=== PATIENT | female | born 1980 | race Caucasian/White ===

== ENCOUNTER 2017-01-14 17:08 | Emergency (ER) | payer MEDICAID ==
[2017-01-14 17:17] VITALS: RESP 18
--- NOTE | 2017-01-14 18:35 | EDPHY ---
H & P Time Seen by Provider: 01/14/17 17:33 HPI/ROS: CHIEF COMPLAINT: Scalp laceration HISTORY OF PRESENT ILLNESS: 36-year-old female presents emergency department with lacerations to the back of her head. She was walking down a trail when her feet slid on rocks out from underneath her and she struck the back of her head on the trail. Patient denies loss of consciousness, no neck pain, she denies dizziness, blurred vision, headache, fogginess. Tetanus is up-to-date. Patient denies other complaints. REVIEW OF SYSTEMS: A comprehensive 10 point review of systems is otherwise negative aside from elements mentioned in the history of present illness. Smoking Status: Never smoked Physical Exam: GEN: Awake, alert, oriented, no acute distress RESP: nl resp effort MSK: No C-spine tenderness to palpation Neuro: Alert and oriented, no facial asymmetry, follows commands, moves all extremities SKIN: 1.5cm posterior occiput superficial laceration and 3 cm posterior occiput superficial laceration Constitutional: Initial Vital Signs Temperature (C) 37 C 01/14/17 17:13 Heart Rate 102 H 01/14/17 17:13 Respiratory Rate 18 01/14/17 17:13 Blood Pressure 114/87 H 01/14/17 17:13 O2 Sat (%) 96 01/14/17 17:13 O2 Delivery Mode Room Air Allergies/Adverse Reactions: No Known Allergies Allergy (Verified 01/14/17 17:12) Home Medications: Medication Instructions Recorded NK [No Known Home Meds] 01/14/17 Medical Decision Making Procedures: Procedure: 2 Laceration repairs. Verbal consent was obtained from the patient. The 3 cm and 1.5 cm laceration on the scalp was anesthetized using 1% lidocaine with epinephrine. The wound was carefully irrigated by the emergency department lay out technician. Next, the wound was prepped and draped in sterile fashion and explored to its base with a gloved finger. There were no deep structures involved. No vascular injury was identified. No foreign bodies were identified. The wounds were repaired with allyn, 6 and 3. The wound repair was simple. The procedure was performed by myself. Tetanus and antibiotic status were addressed. ED Course/Re-evaluation: This patient presents after a minor head injury with no headache, amnesia or LOC. Neurologic exam normal. No indication for neuro imaging. CHI precautions given. Differential Diagnosis: The differential diagnosis for the patient's head injury included but was not limited to concussion, skull fracture, intra-parenchymal contusion, subarachnoid , subdural and epidural hematoma. Departure - Departure Disposition: Home, Routine, Self-Care Clinical Impression: Minor head injury without loss of consciousness Qualifiers: Encounter type: initial encounter Qualified Code(s): S09.90XA - Unspecified injury of head, initial encounter Occipital scalp laceration Qualifiers: Encounter type: initial encounter Qualified Code(s): S01.01XA - Laceration without foreign body of scalp, initial encounter Condition: Good Instructions: Laceration (ED), Head Injury (ED) Additional Instructions: Return to the emergency department in 5-7 days for staple removal, return sooner for any signs of infection or signs of head injury such as forceful vomiting, confusion, difficulty walking, blurred vision, seizure-like activity, any new symptoms or concerns. Referrals: [facility] [Other] - As per Instructions
[2017-01-14 18:47] VITALS: BP 121/67; PULSE 68; TEMP 97.9; O2SAT 97
== END 2017-01-14 18:47 | disposition home or self-care (01) ==
PROC: 0HQ0XZZ Repair Scalp Skin, External Approach (ICD-10-PCS; principal; 2017-01-14)
DX: S01.01XA Laceration without foreign body of scalp, initial encounter (principal); W22.8XXA Striking against or struck by other objects, initial encounter; Y93.01 Activity, walking, marching and hiking